=== PATIENT | female | born 1990 | race Caucasian/White ===

== ENCOUNTER → 2017-02-03 | Outpatient (CLI) | payer OTHER ==
--- NOTE | 2017-02-04 10:17 | Pulmonary Function Test ---
Pulmonary Function Test Date of Procedure:: 02/03/17 INDICATION:: Dyspnea Referring Provider: Dr. Perez Tank Hoop Bender: Amarilis Sandoval [employer] - Report Spirometry: FVC 4.94 L 119% FEV1 3.79 L 108% FEV1/FVC % 77 predicted 85 FEF 25-75% 2.98 L 73% Impression: Minimal obstructive ventilatory defect as implied by the decrease in FEF 25-75%
== END ==
LOC: RT 13:12
PROVIDERS: ATTEND Physician Assistant
DX: R05 Cough (principal); R06.2 Wheezing
CPT/HCPCS: 94010